=== PATIENT | female | born 1990 | race Caucasian/White ===

== ENCOUNTER 2017-09-19 09:35 | Emergency (ER) | payer SELFPAY ==
[~2017-09-19] VITALS: Ht 170.2 cm; Wt 65.8 kg
[2017-09-19] MEDS ORDERED: Cheratussin AC118 ML PO (10:54)
[2017-09-19] MEDS ORDERED: Sudogest30 MG PO (10:54)
[2017-09-19] MEDS ORDERED: Flonase 0.05% N16 GM (10:54)
== END 2017-09-19 11:17 | disposition home or self-care (01) ==
LOC: ER 09:35
DX: R05 Cough (principal); Z87.01 Personal history of pneumonia (recurrent); Z87.891 Personal history of nicotine dependence
CPT/HCPCS: 99283; J1100